=== PATIENT | male | born 1995 | race Asian ===

== ENCOUNTER 2022-02-27 11:02 | Inpatient (IN) | payer MEDICAID ==
[~2022-02-27] VITALS: Ht 172.7 cm; Wt 66.2 kg
[2022-02-27 14:37] VITALS: BP 124/92
[2022-02-27 16:32] VITALS: BP 120/70
[2022-02-28] MEDS ORDERED: BACITRACIN 28 GM OINTMENT TP PRN (06:30)
[2022-02-28] MEDS ORDERED: OMEPRAZOLE 20 MG CAPSULE PO PRN (06:30)
[2022-02-28] MEDS ORDERED: MAG HYDROX/AL HYDROX/SIMETH ES 30 ML SUSPENSION UDCUP PO PRN (06:30)
[2022-02-28] MEDS ORDERED: BENZOCAINE/MENTHOL LOZENGE PO PRN (06:30)
[2022-02-28] MEDS ORDERED: CloNIDine HCL 0.1 MG TABLET PO PRN (06:30)
[2022-02-28] MEDS ORDERED: IBUPROFEN 600 MG TABLET PO PRN (06:30)
[2022-02-28] MEDS ORDERED: PETROLATUM,WHITE 28 GM JELLY TP PRN (06:30)
[2022-02-28] MEDS ORDERED: MAGNESIUM HYDROXIDE SUSPENSION 30 ML UDCUP PO PRN (06:30)
[2022-02-28] MEDS ORDERED: DOCUSATE SODIUM 100 MG CAPSULE PO PRN (06:30)
[2022-02-28] MEDS ORDERED: ONDANSETRON HCL 4 MG TABLET PO PRN (06:30)
[2022-02-28] MEDS ORDERED: ALBUTEROL SULFATE HFA 90 MCG/PUFF 8 GM INHALER IH PRN (06:30)
[2022-02-28] MEDS ORDERED: ACETAMINOPHEN 325 MG TABLET PO PRN (06:30)
[2022-02-28] MEDS ORDERED: LOPERAMIDE HCL 2 MG CAPSULE PO PRN (06:30)
[2022-02-28 06:34] VITALS: BP 113/69
[2022-02-28 07:26] LABS: BASOPHILS % (AUTO) 1.1 % (0.0-2.0); EOSINOPHILS % (AUTO) 2.4 % (1.0-6.0); HEMATOCRIT 39.1 % (41-53); HEMOGLOBIN 12.8 g/dL (13.5-17.5); LYMPHOCYTES # (AUTO) 1.3 K/uL (1.0-4.8); LYMPHOCYTES % (AUTO) 24.3 % (22.0-44.0); MEAN CORPUSCULAR HEMOGLOBIN 24.3 pg (26.0-34.0); MEAN CORPUSCULAR HGB CONC 32.9 G/dL (31.0-37.0); MEAN CORPUSCULAR VOLUME 74 fL (80-100); MONOCYTES # (AUTO) 0.3 K/uL (0.1-1.0); MONOCYTES % (AUTO) 6.1 % (2.0-9.0); NEUTROPHILS # (AUTO) 3.6 K/uL (1.8-7.7); NEUTROPHILS % (AUTO) 66.1 % (40.0-70.0); PLATELET COUNT (AUTO) 254 K/uL (150-450); RED BLOOD CELL COUNT(AUTO) 5.28 MIL/uL (4.50-5.90); RED CELL DISTRIBUTION WIDTH 14.4 % (11.5-14.5)
[2022-02-28 07:53] LABS: ALANINE AMINOTRANSFERASE 19 U/L (12-78); ALBUMIN 3.5 g/dL (3.4-5.0); ALKALINE PHOSPHATASE 99 U/L (46-116); ANION GAP 8 mmol/L (8-16); ASPARTATE AMINOTRANSFERASE 10 U/L (15-37); BILIRUBIN,TOTAL 0.3 mg/dL (0.1-1.0); CALCIUM, TOTAL 8.7 mg/dL (8.8-10.5); CARBON DIOXIDE 27 mmol/L (22-29); CHLORIDE 106 mmol/L (98-107); CHOL/HDL RATIO 2.9 (4.2-7.3); CHOLESTEROL 143 mg/dL (131-200); FREE T4 (FREE THYROXINE) 0.86 ng/dL (0.76-1.46); GLOMERULAR FILTR. RATE CALC > 60 mL/min (>60); HDL CHOLESTEROL 50 mg/dL (40-60); LDL CHOL (CALC.) 82 mg/dL (0-130); SODIUM SERUM 141 mmol/L (136-145); THYROID STIMULATING HORMONE 0.71 uIU/mL (0.36-3.74); TOTAL PROTEIN, SERUM 6.4 g/dL (6.4-8.2); TRIGLYCERIDES 57 mg/dL (15-150); UREA NITROGEN, BLOOD 17 mg/dL (7-18)
[2022-02-28 07:58] LABS: GLUCOSE,RANDOM 87 mg/dL (70-110)
[2022-02-28 08:40] VITALS: BP 114/70
[2022-02-28] MEDS ORDERED: DiphenhydrAMINE HCL 50 MG/ML VIAL ONE (09:48)
[2022-02-28] MEDS ORDERED: LORazepam 2 MG/ML VIAL IM ONE (10:00)
[2022-02-28] MEDS ORDERED: DiphenhydrAMINE HCL 50 MG/ML VIAL IM ONE (10:00)
[2022-02-28] MEDS ORDERED: HALOPERIDOL LACTATE 5 MG/ML VIAL IM ONE (10:00)
[2022-02-28 11:00] VITALS: BP 121/76
[2022-02-28 16:01] VITALS: BP 138/70
[2022-02-28] MEDS: RisperiDONE 3 MG TABLET PO SCH (20:32)
[2022-02-28] MEDS: LORazepam 2 MG TABLET PO PRN (20:32)
[2022-02-28] MEDS: DIVALPROEX SODIUM 500 MG DR TABLET PO SCH (20:32)
[2022-02-28] MEDS: HALOPERIDOL 5 MG TABLET PO PRN (20:32)
[2022-03-01 05:43] VITALS: BP 114/67
[2022-03-01 08:00] VITALS: BP 121/76
[2022-03-01] MEDS: LORazepam 2 MG TABLET PO PRN ×2 (08:00→16:39)
[2022-03-01] MEDS: RisperiDONE 3 MG TABLET PO SCH ×2 (08:00→20:02)
[2022-03-01] MEDS: DIVALPROEX SODIUM 500 MG DR TABLET PO SCH ×2 (08:00→20:02)
[2022-03-01 16:00] VITALS: BP 138/80
[2022-03-01] MEDS: HALOPERIDOL 5 MG TABLET PO PRN (16:39)
[2022-03-01] MEDS: ZOLPIDEM TARTRATE 10 MG TABLET PO PRN (20:02)
[2022-03-02 06:03] VITALS: BP 124/66
[2022-03-02] MEDS: DIVALPROEX SODIUM 500 MG DR TABLET PO SCH ×2 (08:04→20:52)
[2022-03-02] MEDS: HALOPERIDOL 5 MG TABLET PO PRN (08:04)
[2022-03-02] MEDS: LORazepam 2 MG TABLET PO PRN (08:04)
[2022-03-02] MEDS: RisperiDONE 3 MG TABLET PO SCH ×2 (08:04→20:52)
[2022-03-02 09:05] VITALS: BP 128/77
[2022-03-03 04:48] VITALS: BP 118/76
[2022-03-03] MEDS: HALOPERIDOL 5 MG TABLET PO PRN (08:08)
[2022-03-03] MEDS: RisperiDONE 3 MG TABLET PO SCH ×2 (08:08→20:57)
[2022-03-03] MEDS: LORazepam 2 MG TABLET PO PRN (08:08)
[2022-03-03] MEDS: DIVALPROEX SODIUM 500 MG DR TABLET PO SCH ×2 (08:08→20:57)
[2022-03-03 08:19] VITALS: BP 146/57
[2022-03-03 16:20] VITALS: BP 117/78
[2022-03-04 04:44] VITALS: BP 108/68
[2022-03-04 08:04] VITALS: BP 134/73
[2022-03-04] MEDS: LORazepam 2 MG TABLET PO PRN ×2 (08:04→16:27)
[2022-03-04] MEDS: DIVALPROEX SODIUM 500 MG DR TABLET PO SCH ×2 (08:04→20:06)
[2022-03-04] MEDS: RisperiDONE 3 MG TABLET PO SCH ×2 (08:04→20:06)
[2022-03-04 16:02] VITALS: BP 135/83
[2022-03-04] MEDS: HALOPERIDOL 5 MG TABLET PO PRN (16:27)
[2022-03-05 06:26] VITALS: BP 117/77
[2022-03-05] MEDS: LORazepam 2 MG TABLET PO PRN ×2 (08:00→16:07)
[2022-03-05] MEDS: DIVALPROEX SODIUM 500 MG DR TABLET PO SCH ×2 (08:00→20:45)
[2022-03-05] MEDS: RisperiDONE 3 MG TABLET PO SCH ×2 (08:00→20:45)
[2022-03-05 08:14] VITALS: BP 127/71
[2022-03-05] MEDS: HALOPERIDOL 5 MG TABLET PO PRN (16:07)
[2022-03-05 16:26] VITALS: BP 113/71
[2022-03-06 05:08] VITALS: BP 117/65
[2022-03-06 08:22] VITALS: BP 149/84
[2022-03-06] MEDS: DIVALPROEX SODIUM 500 MG DR TABLET PO SCH ×2 (08:24→20:30)
[2022-03-06] MEDS: LORazepam 2 MG TABLET PO PRN ×2 (08:25→16:55)
[2022-03-06] MEDS: RisperiDONE 3 MG TABLET PO SCH ×2 (08:25→20:30)
[2022-03-06 10:00] VITALS: BP 128/80
[2022-03-06] MEDS: HALOPERIDOL 5 MG TABLET PO PRN ×2 (10:58→16:55)
[2022-03-06 16:04] VITALS: BP 118/70
[2022-03-06] MEDS: ZOLPIDEM TARTRATE 10 MG TABLET PO PRN (20:30)
[2022-03-07 05:06] VITALS: BP 129/70
[2022-03-07 08:33] VITALS: BP 123/75
[2022-03-07] MEDS: RisperiDONE 3 MG TABLET PO SCH ×2 (09:01→20:33)
[2022-03-07] MEDS: DIVALPROEX SODIUM 500 MG DR TABLET PO SCH ×2 (09:01→20:33)
[2022-03-07] MEDS: HALOPERIDOL 5 MG TABLET PO PRN ×2 (09:02→17:35)
[2022-03-07] MEDS: LORazepam 2 MG TABLET PO PRN ×2 (09:02→17:35)
[2022-03-07 16:02] VITALS: BP 120/70
[2022-03-07] MEDS: ZOLPIDEM TARTRATE 10 MG TABLET PO PRN (20:34)
[2022-03-08 01:55] VITALS: BP 123/75
[2022-03-08 08:08] VITALS: BP 123/77
[2022-03-08] MEDS: DIVALPROEX SODIUM 500 MG DR TABLET PO SCH ×2 (08:34→20:38)
[2022-03-08] MEDS: LORazepam 2 MG TABLET PO PRN ×2 (08:34→16:44)
[2022-03-08] MEDS: RisperiDONE 3 MG TABLET PO SCH ×2 (08:34→20:37)
[2022-03-08 16:04] VITALS: BP 134/91
[2022-03-08] MEDS: HALOPERIDOL 5 MG TABLET PO PRN (16:44)
[2022-03-09 05:31] VITALS: BP 119/73
[2022-03-09] MEDS: DIVALPROEX SODIUM 500 MG DR TABLET PO SCH ×2 (08:16→20:23)
[2022-03-09] MEDS: RisperiDONE 3 MG TABLET PO SCH ×2 (08:16→20:23)
[2022-03-09] MEDS: LORazepam 2 MG TABLET PO PRN ×2 (08:16→15:50)
[2022-03-09] MEDS: HALOPERIDOL 5 MG TABLET PO PRN ×2 (08:16→15:50)
[2022-03-09 08:24] VITALS: BP 124/76
[2022-03-09 15:06] LABS: GLUCOMETER DEV NAME(LOC) POC.BV
[2022-03-09 16:06] VITALS: BP 133/72
[2022-03-10 05:12] VITALS: BP 112/61
[2022-03-10 08:08] VITALS: BP 119/68
[2022-03-10] MEDS: HALOPERIDOL 5 MG TABLET PO PRN ×2 (08:34→16:59)
[2022-03-10] MEDS: LORazepam 2 MG TABLET PO PRN ×2 (08:34→16:59)
[2022-03-10] MEDS: DIVALPROEX SODIUM 500 MG DR TABLET PO SCH ×2 (08:34→20:44)
[2022-03-10] MEDS: RisperiDONE 3 MG TABLET PO SCH (08:34)
[2022-03-10 16:46] VITALS: BP 115/68
[2022-03-10] MEDS: RisperiDONE 4 MG TABLET PO SCH (20:44)
[2022-03-10] MEDS: ZOLPIDEM TARTRATE 10 MG TABLET PO PRN (20:44)
[2022-03-11 04:49] VITALS: BP 108/65
[2022-03-11 08:09] VITALS: BP 120/85
[2022-03-11] MEDS: DIVALPROEX SODIUM 500 MG DR TABLET PO SCH ×2 (08:18→20:35)
[2022-03-11] MEDS: RisperiDONE 4 MG TABLET PO SCH ×2 (08:18→20:35)
[2022-03-11 16:01] VITALS: BP 138/90
[2022-03-11] MEDS: LORazepam 2 MG TABLET PO PRN (16:30)
[2022-03-11] MEDS: HALOPERIDOL 5 MG TABLET PO PRN (16:30)
[2022-03-11] MEDS: ZOLPIDEM TARTRATE 10 MG TABLET PO PRN (20:35)
[2022-03-12 04:32] VITALS: BP 121/68
[2022-03-12 08:02] VITALS: BP 115/67
[2022-03-12] MEDS: RisperiDONE 4 MG TABLET PO SCH ×2 (08:17→20:32)
[2022-03-12] MEDS: DIVALPROEX SODIUM 500 MG DR TABLET PO SCH ×2 (08:17→20:29)
[2022-03-12] MEDS: LORazepam 2 MG TABLET PO PRN (08:17)
[2022-03-12 16:20] VITALS: BP 112/72
[2022-03-13 05:34] VITALS: BP 117/66
[2022-03-13 08:23] VITALS: BP 111/60
[2022-03-13] MEDS: RisperiDONE 4 MG TABLET PO SCH ×2 (08:38→21:19)
[2022-03-13] MEDS: DIVALPROEX SODIUM 500 MG DR TABLET PO SCH (08:38)
[2022-03-13 16:03] VITALS: BP 101/63
[2022-03-13 16:04] VITALS: BP 139/91
[2022-03-13] MEDS: LORazepam 2 MG TABLET PO PRN (16:36)
[2022-03-13] MEDS: HALOPERIDOL 5 MG TABLET PO PRN (16:36)
[2022-03-13] MEDS ORDERED: HALOPERIDOL LACTATE 5 MG/ML VIAL IM ONE (17:30)
[2022-03-13] MEDS ORDERED: DiphenhydrAMINE HCL 50 MG/ML VIAL IM ONE (17:30)
[2022-03-13] MEDS ORDERED: LORazepam 2 MG/ML VIAL IM ONE (17:30)
[2022-03-13] MEDS ORDERED: HALOPERIDOL LACTATE 5 MG/ML VIAL ONE (17:36)
[2022-03-13] MEDS ORDERED: DiphenhydrAMINE HCL 50 MG/ML VIAL ONE (17:36)
[2022-03-13] MEDS ORDERED: LORazepam 2 MG/ML VIAL ONE (17:36)
[2022-03-14 08:10] VITALS: BP 116/65
[2022-03-14] MEDS: DIVALPROEX SODIUM 500 MG DR TABLET PO SCH ×3 (09:40→16:56)
[2022-03-14] MEDS: RisperiDONE 4 MG TABLET PO SCH ×2 (09:40→20:44)
[2022-03-14] MEDS: LORazepam 2 MG TABLET PO PRN ×2 (09:40→16:56)
[2022-03-14 16:09] VITALS: BP 108/64
[2022-03-14] MEDS: HALOPERIDOL 5 MG TABLET PO PRN (16:56)
[2022-03-14] MEDS: ZOLPIDEM TARTRATE 10 MG TABLET PO PRN (20:45)
[2022-03-15 05:07] VITALS: BP 120/65
[2022-03-15] MEDS: DIVALPROEX SODIUM 500 MG DR TABLET PO SCH ×3 (08:14→16:52)
[2022-03-15] MEDS: RisperiDONE 4 MG TABLET PO SCH ×2 (08:14→20:50)
[2022-03-15 08:20] VITALS: BP 103/61
[2022-03-15 16:22] VITALS: BP 140/92
[2022-03-15] MEDS: HALOPERIDOL 5 MG TABLET PO PRN (16:53)
[2022-03-15] MEDS: LORazepam 2 MG TABLET PO PRN (16:53)
[2022-03-15] MEDS: ZOLPIDEM TARTRATE 10 MG TABLET PO PRN (20:50)
[2022-03-16 04:56] VITALS: BP 117/68
[2022-03-16] MEDS: RisperiDONE 4 MG TABLET PO SCH ×2 (08:18→20:53)
[2022-03-16] MEDS: DIVALPROEX SODIUM 500 MG DR TABLET PO SCH ×3 (08:18→16:49)
[2022-03-16 08:22] VITALS: BP 118/69
[2022-03-16] MEDS: NICOTINE 21 MG/24 HOUR PATCH TD PRN (14:22)
[2022-03-16 16:11] VITALS: BP 135/89
[2022-03-17 00:31] VITALS: BP 128/72
[2022-03-17 08:27] VITALS: BP 112/64
[2022-03-17] MEDS: RisperiDONE 4 MG TABLET PO SCH ×2 (09:09→20:12)
[2022-03-17] MEDS: DIVALPROEX SODIUM 500 MG DR TABLET PO SCH ×3 (09:09→16:20)
[2022-03-17 16:13] VITALS: BP 112/72
[2022-03-17] MEDS: NICOTINE 21 MG/24 HOUR PATCH TD PRN (16:51)
[2022-03-17] MEDS: ZOLPIDEM TARTRATE 10 MG TABLET PO PRN (20:53)
[2022-03-18 04:43] VITALS: BP 114/68
[2022-03-18 08:07] VITALS: BP 115/72
[2022-03-18] MEDS: LORazepam 2 MG TABLET PO PRN (09:13)
[2022-03-18] MEDS: RisperiDONE 4 MG TABLET PO SCH ×2 (09:14→20:43)
[2022-03-18] MEDS: DIVALPROEX SODIUM 500 MG DR TABLET PO SCH ×3 (09:14→16:05)
[2022-03-18] MEDS: NICOTINE 21 MG/24 HOUR PATCH TD PRN (10:12)
[2022-03-18] MEDS ORDERED: DIVA-112 PO (14:54)
[2022-03-18] MEDS ORDERED: RISP4TAB73 PO (14:54)
[2022-03-18 16:08] VITALS: BP 129/90
[2022-03-18] MEDS ORDERED: RisperiDONE MICROSPHERES 50 MG/2 ML SYRINGE IM SCH (21:00)
[2022-03-19 05:19] VITALS: BP 125/86
[2022-03-19] MEDS: RisperiDONE 4 MG TABLET PO SCH (08:03)
[2022-03-19] MEDS: DIVALPROEX SODIUM 500 MG DR TABLET PO SCH ×2 (08:03→12:46)
[2022-03-19 08:11] VITALS: BP 113/75
== END 2022-03-19 15:00 | disposition home or self-care (01) | DRG 750 ==
LOC: B3A 13:57
PROVIDERS: ADMIT Psychiatry & Neurology Psychiatry; ATTEND Psychiatry & Neurology Psychiatry
DX: F20.0 Paranoid schizophrenia (principal); F12.90 Cannabis use, unspecified, uncomplicated; F41.9 Anxiety disorder, unspecified; Z20.822 Contact with and (suspected) exposure to COVID-19; G47.00 Insomnia, unspecified; Z71.6 Tobacco abuse counseling; Z72.0 Tobacco use; Z72.89 Other problems related to lifestyle
CPT/HCPCS: 80053; 80061; 80164; 83036; 84436; 84439; 84443; 85025; 86592; G0480; J1200; J1630; J2060; J2794

== ENCOUNTER 2023-12-08 16:54 | Inpatient (IN) | payer MEDICAID ==
[~2023-12-08] VITALS: Ht 170.2 cm; Wt 58.7 kg
[~2023-12-08 16:54] MED LIST: DIVA-112 PO; RISP4TAB73 PO
[2023-12-08 18:21] LABS: BASOPHILS % (AUTO) 0.9 % (0.0-2.0); EOSINOPHILS % (AUTO) 2.8 % (1.0-6.0); HEMATOCRIT 34.2 % (41-53); HEMOGLOBIN 11.3 g/dL (13.5-17.5); LYMPHOCYTES # (AUTO) 1.3 K/uL (1.0-4.8); MEAN CORPUSCULAR HEMOGLOBIN 25.2 pg (26.0-34.0); MEAN CORPUSCULAR VOLUME 76 fL (80-100); MONOCYTES # (AUTO) 0.4 K/uL (0.1-1.0); NEUTROPHILS % (AUTO) 61.3 % (40.0-70.0); PLATELET COUNT (AUTO) 231 K/uL (150-450); RED BLOOD CELL COUNT(AUTO) 4.49 MIL/uL (4.50-5.90); RED CELL DISTRIBUTION WIDTH 16.3 % (11.5-14.5); WHITE BLOOD COUNT (AUTO) 4.9 K/uL (4.5-11.0)
[2023-12-08 18:24] LABS: ANION GAP 9 mmol/L (8-16); CALCIUM, TOTAL 8.6 mg/dL (8.8-10.5); CARBON DIOXIDE 26 mmol/L (22-29); CHLORIDE 102 mmol/L (98-107); CREATININE 0.72 mg/dL (0.60-1.30); GLOMERULAR FILTR. RATE CALC > 60 mL/min (>60); GLUCOSE,RANDOM 93 mg/dL (70-110); POTASSIUM 3.5 mmol/L (3.5-5.1); SODIUM SERUM 137 mmol/L (136-145); UREA NITROGEN, BLOOD 11 mg/dL (7-18)
[2023-12-08 18:31] LABS: ALANINE AMINOTRANSFERASE 60 U/L (12-78); ALBUMIN 3.9 g/dL (3.4-5.0); ALKALINE PHOSPHATASE 81 U/L (46-116); ASPARTATE AMINOTRANSFERASE 38 U/L (15-37); BILIRUBIN,TOTAL 0.3 mg/dL (0.1-1.0); SALICYLATE 3.1 mg/dL (2.8-20.0); TOTAL PROTEIN, SERUM 6.3 g/dL (6.4-8.2)
[2023-12-08 18:39] LABS: ACETAMINOPHEN < 2 mcg/mL (10-30); ALCOHOL, BLOOD (SERUM) < 3 mg/dL (0-10); VALPROIC ACID < 3 mcg/mL (50-100)
[2023-12-08 19:02] LABS: COVID AG,FIA SOURCE NASAL SWAB
[2023-12-08 19:25] LABS: SARS-COV2 (COVID) ANTIGEN,FIA Negative (Negative)
[2023-12-08] MEDS ORDERED: ZOLPIDEM TARTRATE 10 MG TABLET PO PRN (20:30)
[2023-12-09] MEDS ORDERED: INFLUENZA VIRUS VACCINE QVS 2023-24 (6MO+)/PF 60 MCG/0.5 ML SYRINGE IM. ONE (00:30)
[2023-12-09 00:54] VITALS: BP 112/56; PULSE 79; RESP 17; TEMP 98.2
[2023-12-09] MEDS ORDERED: MAG HYDROX/ALUMINUM HYD/SIMETH ES 30 ML SUSPENSION UDCUP PO PRN (07:00)
[2023-12-09] MEDS ORDERED: ACETAMINOPHEN 325 MG TABLET PO PRN (07:00)
[2023-12-09] MEDS ORDERED: CloNIDine HCL 0.1 MG TABLET PO PRN (07:00)
[2023-12-09] MEDS ORDERED: MAGNESIUM HYDROXIDE SUSPENSION 30 ML UDCUP PO PRN (07:00)
[2023-12-09] MEDS ORDERED: IBUPROFEN 400 MG TABLET PO PRN (07:00)
[2023-12-09] MEDS ORDERED: ALBUTEROL SULFATE HFA 90 MCG/PUFF 8 GM INHALER IH PRN (07:00)
[2023-12-09] MEDS ORDERED: PETROLATUM,WHITE 28 GM JELLY TP PRN (07:00)
[2023-12-09] MEDS ORDERED: GuaiFENesin/D-METHORPHAN [SUGAR-FREE] 200-20MG/10 ML SYRUP UDCUP PO PRN (07:00)
[2023-12-09] MEDS ORDERED: ONDANSETRON HCL 4 MG TABLET PO PRN (07:00)
[2023-12-09] MEDS ORDERED: LOPERAMIDE HCL 2 MG CAPSULE PO PRN (07:00)
[2023-12-09] MEDS ORDERED: DOCUSATE SODIUM 100 MG CAPSULE PO PRN (07:00)
[2023-12-09 08:54] VITALS: BP 109/88; PULSE 82; RESP 20; TEMP 98
[2023-12-09 20:06] VITALS: BP 110/75; PULSE 80; RESP 18; TEMP 98.2
[2023-12-10 08:14] LABS: HEMOGLOBIN A1C 4.9 % (3.8-5.6)
[2023-12-10 08:18] VITALS: BP 94/68; PULSE 71; RESP 16; TEMP 97.9; O2SAT 100
[2023-12-10 08:18] LABS: ALCOHOL, URINE DRUG SCREEN NEGATIVE (NEGATIVE); AMPHET/METH SCREEN,URINE NEGATIVE (NEGATIVE); BARBITURATE SCREEN, URINE NEGATIVE (NEGATIVE); BENZODIAZEPINES SCREEN,URINE NEGATIVE (NEGATIVE); CANNABINOID SCREEN,URINE NEGATIVE (NEGATIVE); COCAINE SCREEN,URINE NEGATIVE (NEGATIVE); METHADONE SCREEN, URINE NEGATIVE (NEGATIVE); OPIATE SCREEN,URINE NEGATIVE (NEGATIVE); PHENCYCLIDINE SCREEN,URINE NEGATIVE (NEGATIVE)
[2023-12-10 08:33] LABS: APPEARANCE,URINE CLEAR (CLEAR); BILIRUBIN,URINE NEGATIVE (NEGATIVE); COLOR,URINE YELLOW (YELLOW); GLUCOSE, URINE (UA) NEGATIVE (NEGATIVE); KETONES,URINE NEGATIVE (NEGATIVE); LEUKOCYTE ESTERASE ,URINE NEGATIVE (NEGATIVE); NITRATE,URINE NEGATIVE (NEGATIVE); OCCULT BLOOD,URINE NEGATIVE (NEGATIVE); PH,URINE 6.5 (5.0-8.0); PH,URINE DRUG SCREEN 6.5 (5.0-8.0); PROTEIN,URINE NEGATIVE (NEGATIVE); SPECIFIC GRAVITIY, URINE 1.026 (1.003-1.030); UROBILINOGEN,URINE <=1.0 mg/dL (<=1.0)
[2023-12-10 08:41] LABS: CHOL/HDL RATIO 2.5 (4.2-7.3); THYROID STIMULATING HORMONE 0.58 uIU/mL (0.36-3.74)
[2023-12-10] MEDS: LORazepam 2 MG TABLET PO PRN (09:29)
[2023-12-10] MEDS: HALOPERIDOL 5 MG TABLET PO PRN (09:29)
[2023-12-10 09:59] LABS: AMORPHOUS SEDIMENT,UR Moderate /LPF (None Seen); BACTERIA,URINE None Seen /HPF (None Seen); RBC,URINE None Seen /HPF (0-2); SQUAMOUS EPITHELIAL CELL,UR None Seen /LPF (None Seen); WBC,URINE None Seen /HPF (0-5)
[2023-12-10] MEDS: RisperiDONE 2 MG TABLET PO SCH ×2 (10:06→20:16)
[2023-12-10] MEDS: DIVALPROEX SODIUM 500 MG DR TABLET PO SCH ×2 (10:06→20:16)
[2023-12-10 20:03] VITALS: BP 112/60; PULSE 70; RESP 18; TEMP 98.5; O2SAT 99
[2023-12-11 08:08] VITALS: BP 113/81; PULSE 93; RESP 18; TEMP 99; O2SAT 100
[2023-12-11] MEDS: DIVALPROEX SODIUM 500 MG DR TABLET PO SCH ×2 (08:17→20:47)
[2023-12-11] MEDS: RisperiDONE 2 MG TABLET PO SCH ×2 (08:17→20:47)
[2023-12-11 20:05] VITALS: BP 132/69; PULSE 96; RESP 18; TEMP 97.9; O2SAT 97
[2023-12-12] MEDS: DIVALPROEX SODIUM 500 MG DR TABLET PO SCH ×2 (09:17→20:25)
[2023-12-12] MEDS: RisperiDONE 2 MG TABLET PO SCH ×2 (09:17→21:48)
[2023-12-12 20:44] VITALS: BP 108/71; PULSE 75; RESP 17; TEMP 97.4; O2SAT 99
[2023-12-13] MEDS: DIVALPROEX SODIUM 500 MG DR TABLET PO SCH ×2 (08:26→20:10)
[2023-12-13] MEDS: RisperiDONE 2 MG TABLET PO SCH ×2 (08:26→20:10)
[2023-12-13 08:54] VITALS: BP 127/81; PULSE 76; RESP 17; TEMP 97.6; O2SAT 100
[2023-12-13] MEDS: NICOTINE 14 MG/24 HOUR PATCH TD PRN (11:41)
[2023-12-13] MEDS: LORazepam 2 MG TABLET PO PRN (14:16)
[2023-12-13 20:23] VITALS: BP 143/98; PULSE 96; RESP 18; TEMP 97.3; O2SAT 100
[2023-12-14] MEDS: NICOTINE 14 MG/24 HOUR PATCH TD PRN (07:44)
[2023-12-14] MEDS: DIVALPROEX SODIUM 500 MG DR TABLET PO SCH ×2 (08:08→20:55)
[2023-12-14] MEDS: RisperiDONE 2 MG TABLET PO SCH ×2 (08:08→20:55)
[2023-12-14 08:33] VITALS: BP 119/74; PULSE 96; RESP 20; TEMP 97.6; O2SAT 100
[2023-12-14 20:22] VITALS: BP 101/59; PULSE 88; RESP 18; TEMP 97.3; O2SAT 97
[2023-12-15] MEDS: RisperiDONE 2 MG TABLET PO SCH ×2 (08:16→21:07)
[2023-12-15] MEDS: DIVALPROEX SODIUM 500 MG DR TABLET PO SCH ×2 (08:17→21:09)
[2023-12-15 09:27] VITALS: BP 106/79; PULSE 76; RESP 16; TEMP 97.7; O2SAT 100
[2023-12-15] MEDS: HALOPERIDOL 5 MG TABLET PO PRN (17:27)
[2023-12-15] MEDS: LORazepam 2 MG TABLET PO PRN (17:27)
[2023-12-15 21:07] VITALS: BP 125/79; PULSE 62; RESP 18; TEMP 97.5; O2SAT 99
[2023-12-16 08:38] VITALS: BP 116/78; PULSE 79; RESP 18; TEMP 97.6; O2SAT 97
[2023-12-16] MEDS: NICOTINE 14 MG/24 HOUR PATCH TD PRN (09:09)
[2023-12-16] MEDS: DIVALPROEX SODIUM 500 MG DR TABLET PO SCH ×2 (09:20→20:46)
[2023-12-16] MEDS: RisperiDONE 2 MG TABLET PO SCH ×2 (09:20→20:46)
[2023-12-16 20:22] VITALS: BP 127/86; PULSE 107; TEMP 98
[2023-12-17] MEDS: RisperiDONE 2 MG TABLET PO SCH ×2 (08:42→20:53)
[2023-12-17] MEDS: DIVALPROEX SODIUM 500 MG DR TABLET PO SCH ×2 (08:42→20:53)
[2023-12-17] MEDS: NICOTINE 14 MG/24 HOUR PATCH TD PRN (08:45)
[2023-12-17 09:17] VITALS: BP 114/60; PULSE 91; RESP 16; TEMP 97.9; O2SAT 100
[2023-12-17 20:07] VITALS: BP 112/73; PULSE 103; RESP 16; TEMP 97.3; O2SAT 99
[2023-12-18 09:16] VITALS: BP 114/61; PULSE 70; RESP 17; TEMP 97.7; O2SAT 99
[2023-12-18] MEDS: DIVALPROEX SODIUM 500 MG DR TABLET PO SCH ×2 (09:22→20:03)
[2023-12-18] MEDS: RisperiDONE 2 MG TABLET PO SCH ×2 (09:22→20:03)
[2023-12-18] MEDS: NICOTINE 14 MG/24 HOUR PATCH TD PRN (13:10)
[2023-12-18 20:06] VITALS: BP 174/80; PULSE 100; RESP 18; TEMP 98.1; O2SAT 100
[2023-12-19] MEDS: DIVALPROEX SODIUM 500 MG DR TABLET PO SCH ×2 (08:12→20:05)
[2023-12-19] MEDS: RisperiDONE 2 MG TABLET PO SCH ×2 (08:12→20:05)
[2023-12-19] MEDS: NICOTINE 14 MG/24 HOUR PATCH TD PRN (08:19)
[2023-12-19 08:46] VITALS: BP 121/72; PULSE 73; RESP 16; TEMP 97.6; O2SAT 100
[2023-12-19 22:18] VITALS: BP 113/73; PULSE 71; RESP 18; TEMP 97.4; O2SAT 99
[2023-12-20 08:12] VITALS: BP 114/75; PULSE 100; RESP 18; TEMP 98; O2SAT 98
[2023-12-20] MEDS: DIVALPROEX SODIUM 500 MG DR TABLET PO SCH ×2 (08:30→21:11)
[2023-12-20] MEDS: RisperiDONE 2 MG TABLET PO SCH ×2 (08:30→21:11)
[2023-12-20] MEDS: NICOTINE 14 MG/24 HOUR PATCH TD PRN (08:33)
[2023-12-20 21:27] VITALS: BP 123/90; PULSE 82; RESP 20; TEMP 98.2; O2SAT 98
[2023-12-21] MEDS: RisperiDONE 2 MG TABLET PO SCH ×2 (08:13→20:35)
[2023-12-21] MEDS: DIVALPROEX SODIUM 500 MG DR TABLET PO SCH ×2 (08:13→20:35)
[2023-12-21] MEDS: NICOTINE 14 MG/24 HOUR PATCH TD PRN (08:16)
[2023-12-21 08:30] VITALS: BP 139/88; PULSE 81; RESP 18; TEMP 97.6; O2SAT 100
[2023-12-21 20:15] VITALS: BP 124/77; PULSE 89; RESP 18; TEMP 98.1; O2SAT 96
[2023-12-22 08:29] VITALS: BP 124/75; PULSE 70; RESP 17; TEMP 97.7; O2SAT 99
[2023-12-22] MEDS: DIVALPROEX SODIUM 500 MG DR TABLET PO SCH ×2 (08:40→20:34)
[2023-12-22] MEDS: RisperiDONE 2 MG TABLET PO SCH ×2 (08:40→20:34)
[2023-12-22] MEDS: NICOTINE 14 MG/24 HOUR PATCH TD PRN (08:43)
[2023-12-22 20:23] VITALS: BP 129/72; PULSE 77; RESP 18; TEMP 97.9
[2023-12-23] MEDS: RisperiDONE 2 MG TABLET PO SCH ×2 (08:05→20:36)
[2023-12-23] MEDS: DIVALPROEX SODIUM 500 MG DR TABLET PO SCH ×2 (08:05→20:36)
[2023-12-23] MEDS: NICOTINE 14 MG/24 HOUR PATCH TD PRN (08:06)
[2023-12-23 08:14] VITALS: BP 143/88; PULSE 67; RESP 18; TEMP 98.2; O2SAT 97
[2023-12-23 21:26] VITALS: BP 127/90; PULSE 85; RESP 18; TEMP 97.8; O2SAT 96
[2023-12-24] MEDS: NICOTINE 14 MG/24 HOUR PATCH TD PRN (08:02)
[2023-12-24] MEDS: RisperiDONE 2 MG TABLET PO SCH (08:02)
[2023-12-24] MEDS: DIVALPROEX SODIUM 500 MG DR TABLET PO SCH (08:02)
[2023-12-24 09:05] VITALS: BP 125/76; PULSE 103; RESP 16; TEMP 97.7; O2SAT 97
[2023-12-24] MEDS ORDERED: DIVA-112 PO (13:31)
[2023-12-24] MEDS ORDERED: RISP2TAB86 PO (13:33)
[2023-12-25] MEDS ORDERED: DIVA-112 PO (16:39)
[2023-12-25] MEDS ORDERED: RISP2TAB86 PO (16:39)
== END 2023-12-24 16:15 | disposition home or self-care (01) | DRG 750 ==
LOC: EMS 16:55 → B3A 21:08 → B2S 12-12 09:29
PROVIDERS: ADMIT Psychiatry & Neurology Psychiatry; ATTEND Psychiatry & Neurology Psychiatry
PROC: GZHZZZZ Group Psychotherapy (ICD-10-PCS; principal; 2023-12-09)
PROC: GZ56ZZZ Individual Psychotherapy, Supportive (ICD-10-PCS; 2023-12-09)
DX: F20.0 Paranoid schizophrenia (principal); R45.851 Suicidal ideations; G47.00 Insomnia, unspecified; Z20.822 Contact with and (suspected) exposure to COVID-19; F41.9 Anxiety disorder, unspecified; D64.9 Anemia, unspecified; R03.0 Elevated blood-pressure reading, without diagnosis of hypertension; Z79.899 Other long term (current) drug therapy; Z28.21 Immunization not carried out because of patient refusal
CPT/HCPCS: 80053; 80061; 80164; 80307; 81001; 83036; 84443; 85025; 99285; G0480; G0481

== ENCOUNTER 2024-02-21 07:12 | Inpatient (IN) | payer MEDICAID ==
[~2024-02-21] VITALS: Ht 167.6 cm; Wt 65.8 kg
[~2024-02-21 07:12] MED LIST changes: +RISP-32 PO; -RISP4TAB73 PO
[2024-02-21 22:36] VITALS: BP 129/90; PULSE 99; RESP 18; TEMP 98; O2SAT 100
[2024-02-22] MEDS ORDERED: MAGNESIUM HYDROXIDE SUSPENSION 30 ML UDCUP PO PRN (06:30)
[2024-02-22] MEDS ORDERED: ALBUTEROL SULFATE HFA 90 MCG/PUFF 8 GM INHALER IH PRN (06:30)
[2024-02-22] MEDS ORDERED: ACETAMINOPHEN 325 MG TABLET PO PRN (06:30)
[2024-02-22] MEDS ORDERED: IBUPROFEN 400 MG TABLET PO PRN (06:30)
[2024-02-22] MEDS ORDERED: MAG HYDROX/ALUMINUM HYD/SIMETH ES 30 ML SUSPENSION UDCUP PO PRN (06:30)
[2024-02-22] MEDS ORDERED: NICOTINE 14 MG/24 HOUR PATCH TD PRN (06:30)
[2024-02-22] MEDS ORDERED: CloNIDine HCL 0.1 MG TABLET PO PRN (06:30)
[2024-02-22] MEDS ORDERED: ONDANSETRON HCL 4 MG TABLET PO PRN (06:30)
[2024-02-22] MEDS ORDERED: PETROLATUM,WHITE 28 GM JELLY TP PRN (06:30)
[2024-02-22] MEDS ORDERED: LOPERAMIDE HCL 2 MG CAPSULE PO PRN (06:30)
[2024-02-22] MEDS ORDERED: GuaiFENesin/D-METHORPHAN [SUGAR-FREE] 200-20MG/10 ML SYRUP UDCUP PO PRN (06:30)
[2024-02-22] MEDS ORDERED: DOCUSATE SODIUM 100 MG CAPSULE PO PRN (06:30)
[2024-02-22] MEDS: NICOTINE 14 MG/24 HOUR PATCH TD SCH (08:48)
[2024-02-22 09:48] VITALS: BP 133/78; PULSE 99; RESP 16; TEMP 97.7; O2SAT 100
[2024-02-22 10:59] LABS: BASOPHILS % (AUTO) 0.5 % (0.0-2.0); EOSINOPHILS % (AUTO) 2.8 % (1.0-6.0); HEMATOCRIT 41.1 % (41-53); HEMOGLOBIN 13.2 g/dL (13.5-17.5); LYMPHOCYTES # (AUTO) 1.1 K/uL (1.0-4.8); LYMPHOCYTES % (AUTO) 25.8 % (22.0-44.0); MEAN CORPUSCULAR HEMOGLOBIN 24.2 pg (26.0-34.0); MEAN CORPUSCULAR HGB CONC 32.1 G/dL (31.0-37.0); MEAN CORPUSCULAR VOLUME 75 fL (80-100); MONOCYTES # (AUTO) 0.3 K/uL (0.1-1.0); MONOCYTES % (AUTO) 6.4 % (2.0-9.0); NEUTROPHILS # (AUTO) 2.9 K/uL (1.8-7.7); NEUTROPHILS % (AUTO) 64.5 % (40.0-70.0); PLATELET COUNT (AUTO) 191 K/uL (150-450); RED BLOOD CELL COUNT(AUTO) 5.46 MIL/uL (4.50-5.90); RED CELL DISTRIBUTION WIDTH 14.6 % (11.5-14.5); WHITE BLOOD COUNT (AUTO) 4.4 K/uL (4.5-11.0)
[2024-02-22 11:18] LABS: ALANINE AMINOTRANSFERASE 18 U/L (12-78); ALBUMIN 3.4 g/dL (3.4-5.0); ALKALINE PHOSPHATASE 81 U/L (46-116); ANION GAP 8 mmol/L (8-16); ASPARTATE AMINOTRANSFERASE 26 U/L (15-37); BILIRUBIN,TOTAL 0.3 mg/dL (0.1-1.0); CALCIUM, TOTAL 8.5 mg/dL (8.8-10.5); CARBON DIOXIDE 27 mmol/L (22-29); CHLORIDE 106 mmol/L (98-107); CHOL/HDL RATIO 2.3 (4.2-7.3); CHOLESTEROL 135 mg/dL (131-200); CREATININE 0.79 mg/dL (0.60-1.30); FREE T4 (FREE THYROXINE) 1.08 ng/dL (0.76-1.46); GLOMERULAR FILTR. RATE CALC > 60 mL/min (>60); GLUCOSE,RANDOM 97 mg/dL (70-110); HDL CHOLESTEROL 60 mg/dL (40-60); LDL CHOL (CALC.) 67 mg/dL (0-130); POTASSIUM 4.3 mmol/L (3.5-5.1); SODIUM SERUM 141 mmol/L (136-145); THYROID STIMULATING HORMONE 0.41 uIU/mL (0.36-3.74); TOTAL PROTEIN, SERUM 6.2 g/dL (6.4-8.2); TRIGLYCERIDES 40 mg/dL (15-150); UREA NITROGEN, BLOOD 12 mg/dL (7-18)
[2024-02-22 11:21] LABS: HEMOGLOBIN A1C 5.8 % (3.8-5.6)
[2024-02-22] MEDS: RisperiDONE 2 MG TABLET PO SCH (12:14)
[2024-02-22] MEDS: DIVALPROEX SODIUM 500 MG DR TABLET PO SCH (20:13)
[2024-02-22 21:15] VITALS: BP 122/69; PULSE 94; TEMP 98.2; O2SAT 99
[2024-02-22] MEDS: HALOPERIDOL 5 MG TABLET PO PRN (22:07)
[2024-02-22] MEDS: LORazepam 2 MG TABLET PO PRN (22:07)
[2024-02-23 08:40] LABS: HEMOGLOBIN A1C 5.8 % (3.8-5.6)
[2024-02-23 08:49] LABS: CHOL/HDL RATIO 2.4 (4.2-7.3); THYROID STIMULATING HORMONE 0.52 uIU/mL (0.36-3.74)
[2024-02-23 08:50] VITALS: BP 133/78; PULSE 91; RESP 18; TEMP 98; O2SAT 99
[2024-02-23] MEDS: ZOLPIDEM TARTRATE 10 MG TABLET PO PRN (20:32)
[2024-02-23 20:45] VITALS: BP 117/86; PULSE 98; TEMP 97.7; O2SAT 97
[2024-02-24 11:05] VITALS: BP 128/83; PULSE 96; RESP 18; TEMP 97.5; O2SAT 96
[2024-02-24 20:27] VITALS: BP 129/89; PULSE 110; TEMP 97; O2SAT 99
[2024-02-25 08:23] VITALS: BP 137/81; PULSE 107; RESP 18; TEMP 97.9; O2SAT 100
[2024-02-25 20:35] VITALS: BP 108/77; PULSE 81; TEMP 97.8; O2SAT 99
[2024-02-26 09:17] VITALS: BP 126/86; PULSE 100; RESP 17; TEMP 98.2; O2SAT 100
[2024-02-26 22:11] VITALS: BP 133/77; PULSE 100; RESP 18; TEMP 98.2; O2SAT 100
[2024-02-27 08:30] VITALS: BP 146/85; PULSE 87; RESP 18; TEMP 97.7; O2SAT 100
[2024-02-27 08:56] LABS: APPEARANCE,URINE HAZY (CLEAR); BILIRUBIN,URINE NEGATIVE (NEGATIVE); COLOR,URINE COLORLESS (YELLOW); GLUCOSE, URINE (UA) NEGATIVE (NEGATIVE); KETONES,URINE NEGATIVE (NEGATIVE); LEUKOCYTE ESTERASE ,URINE NEGATIVE (NEGATIVE); NITRATE,URINE NEGATIVE (NEGATIVE); OCCULT BLOOD,URINE NEGATIVE (NEGATIVE); PROTEIN,URINE NEGATIVE (NEGATIVE); SPECIFIC GRAVITIY, URINE 1.007 (1.003-1.030); UROBILINOGEN,URINE <=1.0 mg/dL (<=1.0)
[2024-02-27 09:07] LABS: ALCOHOL, URINE DRUG SCREEN NEGATIVE (NEGATIVE); AMPHET/METH SCREEN,URINE NEGATIVE (NEGATIVE); BARBITURATE SCREEN, URINE NEGATIVE (NEGATIVE); BENZODIAZEPINES SCREEN,URINE NEGATIVE (NEGATIVE); CANNABINOID SCREEN,URINE NEGATIVE (NEGATIVE); COCAINE SCREEN,URINE NEGATIVE (NEGATIVE); METHADONE SCREEN, URINE NEGATIVE (NEGATIVE); OPIATE SCREEN,URINE NEGATIVE (NEGATIVE); PHENCYCLIDINE SCREEN,URINE NEGATIVE (NEGATIVE)
[2024-02-27 20:19] VITALS: BP 124/83; PULSE 74; RESP 18; TEMP 97.8
[2024-02-28 08:06] VITALS: BP 116/69; PULSE 76; RESP 16; TEMP 98; O2SAT 98
[2024-02-28 21:50] VITALS: BP 124/84; PULSE 89; RESP 16; TEMP 98.2; O2SAT 100
[2024-02-29] MEDS: PNEUMOCOCCAL VACCINE POLYVALENT 0.5 ML SYRINGE [PPSV23] IM. ONE (06:00)
[2024-02-29] MEDS: INFLUENZA VIRUS VACCINE QVS 2023-24 (6MO+)/PF 60 MCG/0.5 ML SYRINGE IM. ONE (06:00)
[2024-02-29 11:07] VITALS: BP 133/90; PULSE 96; RESP 18; TEMP 97.8; O2SAT 100
[2024-02-29 21:08] VITALS: BP 127/83; PULSE 74; TEMP 97.7; O2SAT 99
[2024-03-01 08:34] VITALS: BP 121/80; PULSE 92; RESP 18; TEMP 98.3; O2SAT 100
[2024-03-01 20:23] VITALS: BP 122/89; PULSE 95; RESP 16; TEMP 98; O2SAT 97
[2024-03-02 09:53] VITALS: BP 138/78; PULSE 100; RESP 17; TEMP 98.6; O2SAT 100
[2024-03-02 20:44] VITALS: BP 126/70; PULSE 100; RESP 16; TEMP 98.2; O2SAT 98
[2024-03-03] MEDS: RisperiDONE 3 MG TABLET PO SCH (09:00)
[2024-03-03 15:58] VITALS: BP 145/95; PULSE 95; RESP 18; TEMP 96.9; O2SAT 99
[2024-03-03 20:37] VITALS: BP 149/98; PULSE 92; RESP 18; TEMP 97.3; O2SAT 96
[2024-03-04 08:10] VITALS: BP 135/77; PULSE 89; RESP 18; TEMP 98; O2SAT 98
[2024-03-04 08:33] LABS: BASOPHILS % (AUTO) 0.8 % (0.0-2.0); HEMATOCRIT 43.5 % (41-53); LYMPHOCYTES # (AUTO) 1.3 K/uL (1.0-4.8); LYMPHOCYTES % (AUTO) 29.9 % (22.0-44.0); MEAN CORPUSCULAR HEMOGLOBIN 24.1 pg (26.0-34.0); MEAN CORPUSCULAR HGB CONC 32.2 G/dL (31.0-37.0); MEAN CORPUSCULAR VOLUME 75 fL (80-100); MONOCYTES # (AUTO) 0.3 K/uL (0.1-1.0); MONOCYTES % (AUTO) 6.7 % (2.0-9.0); NEUTROPHILS # (AUTO) 2.7 K/uL (1.8-7.7); NEUTROPHILS % (AUTO) 60.6 % (40.0-70.0); PLATELET COUNT (AUTO) 198 K/uL (150-450); RED BLOOD CELL COUNT(AUTO) 5.81 MIL/uL (4.50-5.90); RED CELL DISTRIBUTION WIDTH 14.7 % (11.5-14.5); WHITE BLOOD COUNT (AUTO) 4.4 K/uL (4.5-11.0)
[2024-03-04 11:48] LABS: RBC MORPHOLOGY COMMENT ABNORMAL RBC MORPH
[2024-03-04 13:59] VITALS: BP 135/77; PULSE 89; RESP 16; TEMP 98; O2SAT 100
[2024-03-04 21:23] VITALS: BP 125/79; PULSE 94; RESP 16; TEMP 97.3; O2SAT 98
[2024-03-05 08:00] VITALS: BP 137/64; PULSE 96; RESP 16; TEMP 97.8; O2SAT 100
[2024-03-05 08:30] VITALS: BP 137/64; PULSE 96; RESP 20; TEMP 97.8; O2SAT 100
[2024-03-05 20:14] VITALS: BP 136/80; PULSE 77; RESP 18; TEMP 98
[2024-03-06 08:16] VITALS: BP 125/64; PULSE 86; RESP 16; TEMP 98.5; O2SAT 99
[2024-03-06 20:24] VITALS: RESP 18
[2024-03-07 08:33] VITALS: BP 140/60; PULSE 75; RESP 17; TEMP 98; O2SAT 98
[2024-03-07 20:28] VITALS: BP 128/81; PULSE 89; RESP 18; TEMP 98.1; O2SAT 98
[2024-03-08 08:45] VITALS: BP 127/78; PULSE 100; RESP 18; TEMP 97.1; O2SAT 98
[2024-03-09 08:26] VITALS: BP 130/84; PULSE 76; RESP 17; TEMP 97.6; O2SAT 100
[2024-03-09 20:42] VITALS: BP 121/72; PULSE 86; TEMP 97.7; O2SAT 98
[2024-03-10 08:34] VITALS: BP 128/64; PULSE 70; RESP 18; TEMP 98; O2SAT 100
[2024-03-11 08:16] VITALS: BP 121/76; PULSE 78; RESP 17; TEMP 97.6; O2SAT 99
[2024-03-11 20:24] VITALS: BP 111/52; PULSE 86; RESP 17; TEMP 98; O2SAT 98
[2024-03-12 08:26] VITALS: BP 130/86; PULSE 106; RESP 18; TEMP 98; O2SAT 98
[2024-03-13 07:07] VITALS: RESP 18
[2024-03-13 09:21] VITALS: BP 133/85; PULSE 100; RESP 18; TEMP 98; O2SAT 100
[2024-03-13 20:14] VITALS: BP 100/83; PULSE 80; RESP 19; TEMP 97.8; O2SAT 97
[2024-03-14 08:28] VITALS: BP 126/67; PULSE 80; RESP 17; TEMP 98; O2SAT 100
[2024-03-14 21:58] VITALS: RESP 18
[2024-03-15 08:38] LABS: BASOPHILS % (AUTO) 0.7 % (0.0-2.0); EOSINOPHILS % (AUTO) 2.8 % (1.0-6.0); HEMATOCRIT 42.2 % (41-53); HEMOGLOBIN 13.6 g/dL (13.5-17.5); LYMPHOCYTES # (AUTO) 1.4 K/uL (1.0-4.8); LYMPHOCYTES % (AUTO) 33.6 % (22.0-44.0); MEAN CORPUSCULAR HEMOGLOBIN 24.3 pg (26.0-34.0); MEAN CORPUSCULAR HGB CONC 32.3 G/dL (31.0-37.0); MEAN CORPUSCULAR VOLUME 75 fL (80-100); MONOCYTES # (AUTO) 0.2 K/uL (0.1-1.0); MONOCYTES % (AUTO) 4.5 % (2.0-9.0); NEUTROPHILS # (AUTO) 2.5 K/uL (1.8-7.7); NEUTROPHILS % (AUTO) 58.4 % (40.0-70.0); PLATELET COUNT (AUTO) 208 K/uL (150-450); RED BLOOD CELL COUNT(AUTO) 5.61 MIL/uL (4.50-5.90); RED CELL DISTRIBUTION WIDTH 14.8 % (11.5-14.5); WHITE BLOOD COUNT (AUTO) 4.3 K/uL (4.5-11.0)
[2024-03-15 08:43] VITALS: BP 127/80; PULSE 79; RESP 18; TEMP 97.8; O2SAT 98
[2024-03-15 21:30] VITALS: BP 122/69; PULSE 78; RESP 16; TEMP 98; O2SAT 95
[2024-03-16 08:37] VITALS: BP 123/74; PULSE 87; RESP 17; TEMP 97.6; O2SAT 99
[2024-03-16 21:55] VITALS: BP 100/56; PULSE 74; RESP 16; TEMP 97.7; O2SAT 100
[2024-03-17 09:40] VITALS: BP 154/72; PULSE 85; RESP 18; TEMP 97.2; O2SAT 96
[2024-03-17 20:27] VITALS: BP 126/79; PULSE 99; TEMP 98.2; O2SAT 98
[2024-03-18 08:35] VITALS: BP 134/70; PULSE 98; RESP 18; TEMP 97.8; O2SAT 98
[2024-03-18 20:26] VITALS: BP 112/61; PULSE 83; TEMP 97.8; O2SAT 98
[2024-03-19 08:22] VITALS: BP 123/75; PULSE 80; RESP 18; TEMP 97.4; O2SAT 96
[2024-03-19 20:20] VITALS: BP 136/77; PULSE 88; RESP 17; TEMP 97.8; O2SAT 97
[2024-03-20 08:14] VITALS: BP 130/61; PULSE 89; RESP 17; TEMP 98.4; O2SAT 98
[2024-03-20 20:31] VITALS: BP 137/80; PULSE 95; RESP 17; TEMP 98.2; O2SAT 98
[2024-03-21 09:02] VITALS: BP 137/96; PULSE 106; RESP 20; TEMP 98; O2SAT 97
[2024-03-21 20:25] VITALS: BP 113/70; PULSE 85; RESP 18; TEMP 98; O2SAT 98
[2024-03-22 08:49] VITALS: BP 131/69; PULSE 80; RESP 18; TEMP 97.3; O2SAT 97
[2024-03-22] MEDS: RisperiDONE ER SUSPENSION 120 MG PRE-FILLED SYRINGE SQ ONE (16:08)
[2024-03-22 20:27] VITALS: BP 128/79; PULSE 99; TEMP 97.5; O2SAT 99
[2024-03-23 08:29] VITALS: BP 125/72; PULSE 84; RESP 17; TEMP 97.7; O2SAT 98
[2024-03-23 20:24] VITALS: BP 132/77; PULSE 79; TEMP 98.3; O2SAT 100
[2024-03-24 08:38] VITALS: BP 133/86; PULSE 80; RESP 18; TEMP 98; O2SAT 99
[2024-03-24 20:24] VITALS: BP 126/94; PULSE 101; TEMP 98; O2SAT 97
[2024-03-25 08:35] VITALS: BP 127/72; PULSE 83; RESP 17; TEMP 97.6; O2SAT 99
[2024-03-25 20:26] VITALS: BP 134/99; PULSE 80; TEMP 98.7; O2SAT 97
[2024-03-26 08:22] VITALS: BP 115/63; PULSE 77; RESP 17; TEMP 97.9; O2SAT 96
[2024-03-26] MEDS ORDERED: RISP120S SQ (10:31)
[2024-03-26] MEDS ORDERED: DIVA-112 PO (10:31)
[2024-04-21] MEDS ORDERED: RisperiDONE ER SUSPENSION 120 MG PRE-FILLED SYRINGE SQ SCH (09:00)
== END 2024-03-26 12:10 | disposition home or self-care (01) | DRG 750 ==
LOC: B3A 20:59
PROVIDERS: ADMIT Psychiatry & Neurology Psychiatry; ATTEND Psychiatry & Neurology Psychiatry
PROC: GZHZZZZ Group Psychotherapy (ICD-10-PCS; principal; 2024-03-03)
DX: F20.0 Paranoid schizophrenia (principal); R45.851 Suicidal ideations; D64.9 Anemia, unspecified; D72.819 Decreased white blood cell count, unspecified; G47.00 Insomnia, unspecified; Z79.899 Other long term (current) drug therapy
CPT/HCPCS: 80053; 80061; 80164; 80307; 81003; 83036; 84439; 84443; 85025; 87081; Q9967

== ENCOUNTER 2024-03-31 21:38 | Emergency (ER) | payer MEDICAID ==
[~2024-03-31] VITALS: Ht 167.6 cm; Wt 63.6 kg
[~2024-03-31 21:38] MED LIST changes: -RISP-32 PO; +RISP120S SQ
[2024-03-31 21:45] VITALS: BP 108/68; PULSE 79; RESP 18; TEMP 98.9
== END 2024-03-31 23:12 | disposition home or self-care (01) ==
LOC: EMS 21:39
DX: F20.9 Schizophrenia, unspecified (principal); F17.210 Nicotine dependence, cigarettes, uncomplicated; F15.90 Other stimulant use, unspecified, uncomplicated; F12.90 Cannabis use, unspecified, uncomplicated; F14.90 Cocaine use, unspecified, uncomplicated
CPT/HCPCS: 99285; Z7502